=== PATIENT | male | born 1985 | race African-American/Black ===

== ENCOUNTER 2017-03-07 18:38 | Emergency (ER) | payer OTHER ==
[~2017-03-07] VITALS: Ht 177.8 cm; Wt 77.1 kg
--- NOTE | ~2017-03-07 | EKG ---
[address] [address] ELECTROCARDIOGRAM REPORT Name: ESTEBAN VALDOVINOS Room #: DEP [facility]#: [id number] Admission: 03/07/17 Attend Phys: Discharge: 03/07/17 Date of : 83 Report #: [id number] THIS REPORT FOR: //name// [facility] ED Test Date: 2017-03-07 Test Time: 18:46:55 Pat Name: ESTEBAN VALDOVINOS Department: Room: Gender: M Transport Medic: CARLOS ALBERTO : 1985 Requested By: Brooks Lamas Order Number: [id number] MD: Bandar Allen Measurements Intervals [place] Rate: 77 P: 85 NV: 175 QRS: 83 QRSD: 92 T: 60 QT: 402 QTc: 455 Interpretive Statements Sinus rhythm Baseline wander in lead(s) I,III,aVL Compared to ECG 02/11/2010 08:41:49 Poor R-wave progression no longer present Electronically Signed On 03-07-2017 23:27:43 [employer] by Bandar Allen [email or web address] <ELECTRONICALLY SIGNED> By: Bandar Allen MD 03/07/17 [id number] Bandar Allen MD /EPI
[~2017-03-07 18:38] MED LIST: ERYTHROMYCIN E3.5 G3 OPHTHALMIC; NORCO 5-325 TA1 EACH PO; ZPAK PO
[2017-03-07 19:59] LABS: ABSOLUTE NEUTROPHILS 2.9 thou/uL (1.4-8.2); BASOPHILS 0.9 % (0.0-2.0); EOSINOPHILS 1.1 % (0.0-3.0); HEMATOCRIT 43.8 % (42.0-52.0); HEMOGLOBIN 14.9 gm/dL (14.0-18.0); LYMPHOCYTES 32.1 % (24.0-44.0); MCH 31.1 pg (26.0-34.0); MCHC 34.1 g/dL (28.0-37.0); MCV 91.1 fL (80.0-100.0); MONOCYTES 10.8 % (1.0-8.0); PLATELET COUNT 298 thou/uL (150-400); POLYS 55.1 % (36.0-66.0); RBC 4.81 mil/uL (4.50-6.00); WBC 5.3 thou/uL (4.0-11.0)
[2017-03-07 20:05] LABS: ANION GAP 9 mmol/L (7-16); BUN 9 mg/dL (7-18); CALCIUM 9.9 mg/dL (8.5-10.1); CHLORIDE 101 mmol/L (98-107); CO2 28 mmol/L (21-32); CREATININE 1.1 mg/dL (0.7-1.3); GLUCOSE 190 mg/dL (74-106); POTASSIUM 4.3 mmol/L (3.5-5.1); SODIUM 138 mmol/L (136-145)
[2017-03-07 20:13] LABS: ALBUMIN 4.2 g/dL (3.4-5.0); SGOT 37 U/L (15-37); SGPT 44 U/L (30-65); TOTAL BILIRUBIN 0.7 mg/dL (<0.1-1.0); TOTAL PROTEIN 8.1 g/dL (6.4-8.2); TROPONIN-I < 0.04 ng/mL (<0.06)
[2017-03-07] MEDS ORDERED: ULTRAM 50MG TAB50 MG PO (20:27)
== END 2017-03-07 20:42 | disposition home or self-care (01) ==
LOC: ER 18:38
PROVIDERS: Physician Assistant
DX: R07.89 Other chest pain (principal); Z87.891 Personal history of nicotine dependence